=== PATIENT | female | born 1950 | race Caucasian/White ===

== ENCOUNTER 2018-12-02 07:07 | Day surgery (SDC) | payer MEDICARE, OTHER ==
[~2018-12-02] VITALS: Ht 160 cm; Wt 76.2 kg
[~2018-12-02 07:07] MED LIST: ALEN10 PO; ALEN70 PO; ASCORBIC ACID500 MG PO; CLON.5 PO; CYCL10 PO; FLUO20 PO; FLUOXETINE HCL60 MG PO; HYDACE5 PO; IBUP800 PO; KLONOPIN; MAGOX 400400 MG PO; MULTI VITAMIN1 EACH PO; Milk Thistle500 MG PO; NITR100CA PO; OXYACE5T PO; Omega 3 1,0001 EACH PO; PROBIOTIC1 EAC1 PO; Prozac20 MG PO; TRAM50 PO; TRAZ50 PO; TRAZODONE; [UNRECOGNIZED DRUG - OTHER] PO
== END 2018-12-02 09:00 | disposition home or self-care (01) ==
LOC: ORSCSDS 07:07
PROVIDERS: Surgery
PROC: 0DBP8ZX Excision of Rectum, Via Natural or Artificial Opening Endoscopic, Diagnostic (ICD-10-PCS; principal; 2018-12-02 08:15)
DX: Z12.11 Encounter for screening for malignant neoplasm of colon (principal); K62.1 Rectal polyp; E78.5 Hyperlipidemia, unspecified; F41.8 Other specified anxiety disorders; Z79.899 Other long term (current) drug therapy
CPT/HCPCS: 88305; J0330; J0461; J2405; J2704; J7120

== ENCOUNTER 2024-11-12 07:42 | Day surgery (SDC) | payer MEDICARE, OTHER ==
[~2024-11-12] VITALS: Ht 160 cm; Wt 74.8 kg
[2024-11-12] VITALS (20 sets, daily range): BP systolic 99–161; BP diastolic 66–112
[~2024-11-12 07:42] MED LIST changes: +ALBU90OI INH; +AMLO5 PO; +Atarax10 MG PO
--- NOTE | 2024-11-12 08:46 | NUR ---
History, Chart, Medications and Allergies reviewed before start of procedure. Patient confirms NPO status and agrees with scheduled surgery. Pre-Op teaching done. Pt verbalizes understanding. Patient states colon prep results clear. Lungs clear T/O to Auscultation.
--- NOTE | 2024-11-12 09:32 | NUR ---
11/12/24 0932 Chano Vann CONFIRMED AND REVIEWED H&P, MEDCICATIONS, ALLERGIES, MEDICAL HISTORY, RESPIRATORY HISTORY, VITAL SIGNS, 3-LEAD EKG, CONSENTS, AND PHYSICIAN ORDERS. PATIENT CONFIRMS NPO STATUS AND AGREES WITH SCHEDULED PROCEDURE. MONITOR INTACT WITH CONTINUOUS PULSE OXIMETRY, CAPNOGRAPHY, 3-LEAD EKG, INTERMITTENT BP. SUPPLEMENTAL O2 TO BE TITRATED THROUGHOUT PROCEDURE TO MAINTAIN O2 SATURATION ABOVE 90%. PATIENT DETERMINED TO BE ASA APPROPRIATE FOR PROPOFOL SEDATION PRIOR TO START OF PROCEDURE BY DR. MORRISON
--- NOTE | 2024-11-12 10:30 | NUR ---
Discharge instructions reviewed with patient. Patient verbalizes understanding. Copy given to patient to take home. Patient up to Ambulate independently. Gait steady. vs RETURN TO BASELINE
== END 2024-11-12 10:30 | disposition home or self-care (01) ==
LOC: ORSCMMR 07:42 → ORD 09:15 → ORSCMMR 09:15 → ORSCSDS 09:15 → ORSCMMR 10:30
PROVIDERS: Surgery
PROC: 0DBK8ZX Excision of Ascending Colon, Via Natural or Artificial Opening Endoscopic, Diagnostic (ICD-10-PCS; principal; 2024-11-12 09:15)
DX: Z12.11 Encounter for screening for malignant neoplasm of colon (principal); D12.2 Benign neoplasm of ascending colon; Z86.0100 Personal history of colon polyps, unspecified; I10 Essential (primary) hypertension; F43.10 Post-traumatic stress disorder, unspecified; F32.A Depression, unspecified; Z85.3 Personal history of malignant neoplasm of breast; F41.9 Anxiety disorder, unspecified; K21.9 Gastro-esophageal reflux disease without esophagitis; E78.5 Hyperlipidemia, unspecified; Z79.899 Other long term (current) drug therapy; Z87.891 Personal history of nicotine dependence
CPT/HCPCS: 88305; J2704; J7120